=== PATIENT | female | born 1990 | race American Indian/Alaskan Native ===

== ENCOUNTER 2017-04-21 20:50 | Emergency (ER) | payer SELFPAY ==
[2017-04-21 21:05] VITALS: BP 107/69
[2017-04-21] MEDS ORDERED: COMPAZINE IV ONE (21:36)
[2017-04-21] MEDS ORDERED: NACL 0.9% 1000 ML 1,000 ML IV ONE (21:36)
[2017-04-21] MEDS ORDERED: BENADRYL IV ONE (21:36)
--- NOTE | 2017-04-21 21:42 | Emergency Department Report ---
ED Headache HPI - General Chief Complaint: Headache Stated Complaint: CHEST PAIN/MIGRAINE Source: patient - History of Present Illness Initial Comments: Patient complaining of headache 2 weeks. Denies photophobia, nausea vomiting, paresthesia, trauma or neck pain. Patient denies having any chest pain. States she has not had any chest pain in the past. Patient unsure of why she said she had chest pain when asked in triage. Timing/Duration: other (2 weeks of headache) Quality: severe Head Injury Location: other (retro-orbital) Associated Symptoms: denies: confusion, fatigue, facial pain, fever/chills, flushing, loss of consciousness, nausea/vomiting, nasal congestion, nasal drainage, numbness in legs/feet, seizures, sinus infection, stiff neck, vision changes, weakness Allergies/Adverse Reactions: Allergies prednisone Allergy (Verified 04/21/17 20:58) Hives Home Medications: Ambulatory Orders Butalb/Acetamin/Caff 50-325-40 [Fioricet] 1 each PO Q4H PRN #15 tablet 04/21/17 Prochlorperazine [Compazine] 10 mg PO ONCE #15 tablet 04/21/17 ED Review of Systems ROS: Stated complaint: CHEST PAIN/MIGRAINE Other details as noted in HPI Constitutional: no symptoms reported. denies: see HPI, chills Eyes: as per HPI ENT: as per HPI. denies: ear pain, throat pain, dental pain, hearing loss, epistaxis, congestion Respiratory: see HPI. denies: cough, orthopnea, shortness of breath, SOB with exertion, SOB at rest Cardiovascular: denies: chest pain, palpitations, dyspnea on exertion, orthopnea , edema, syncope, paroxysmal nocturnal dyspnea Gastrointestinal: denies: abdominal pain, nausea, vomiting, diarrhea Genitourinary: denies: urgency, dysuria, frequency, hematuria, discharge, abnormal menses, dyspareunia Musculoskeletal: denies: back pain, joint swelling, arthralgia, myalgia Skin: denies: rash, lesions, pruritus Neurological: headache. denies: weakness, numbness, paresthesias, confusion, abnormal gait, vertigo Psychiatric: denies: anxiety, depression, auditory hallucinations, visual hallucinations, homicidal thoughts, suicidal thoughts ED Past Medical Hx - Past Medical History Previous Medical History?: No - Surgical History Past Surgical History?: No - Social History Smoking Status: Former Smoker Substance Use Type: Alcohol, Marijuana - Medications Home Medications: Home Medications Medication Instructions Recorded Confirmed Last Taken Type Butalb/Acetamin/Caff 50-325-40 1 each PO Q4H PRN #15 tablet 04/21/17 Unknown Rx [Fioricet] Prochlorperazine [Compazine] 10 mg PO ONCE #15 tablet 04/21/17 Unknown Rx ED Physical Exam - General Limitations: No Limitations General appearance: alert, in no apparent distress - Head Head exam: Present: atraumatic, normocephalic - Eye Eye exam: Present: normal appearance, PERRL, EOMI. Absent: scleral icterus, conjunctival injection, nystagmus, periorbital swelling, periorbital tenderness Pupils: Present: normal accommodation. Absent: irregular, unequal, miosis, mydriatic - ENT ENT exam: Present: normal exam, normal orophraynx, mucous membranes moist, TM's normal bilaterally, normal external ear exam - Neck Neck exam: Present: normal inspection, full ROM. Absent: tenderness, meningismus, lymphadenopathy - Respiratory Respiratory exam: Absent: respiratory distress - Cardiovascular Cardiovascular Exam: Present: regular rate - GI/Abdominal GI/Abdominal exam: Present: soft. Absent: distended, tenderness - Extremities Exam Extremities exam: Present: normal inspection, full ROM, normal capillary refill. Absent: pedal edema - Back Exam Back exam: Present: normal inspection. Absent: CVA tenderness (R), CVA tenderness (L) - Neurological Exam Neurological exam: Present: alert, oriented X3, CN II-XII intact, normal gait. Absent: altered, abnormal gait - Psychiatric Psychiatric exam: Present: normal affect, normal mood. Absent: depressed, agitated, anxious, flat affect, manic, homicidal ideation, suicidal ideation - Skin Skin exam: Present: warm, dry, intact, normal color, rash ED Course Vital Signs 04/21/17 20:58 Temperature 98.7 F Pulse Rate 85 Respiratory 18 Rate Blood Pressure 107/69 O2 Sat by Pulse 97 Oximetry - Reevaluation(s) Reevaluation #1: 04/21/17 22:17 After several attempts at IV were unsuccessful patient refusing any further assessment/diagnostics, patient requesting prescriptions and to be discharged and is willing to sign out AMA. Reevaluation #2: 04/21/17 22:54 Just talk to patient as she was exiting ED with boyfriend, patient awake alert and oriented, with normal gait, talking on the phone. No deficits noted. Critical care attestation.: If time is entered above; I have spent that time in minutes in the direct care of this critically ill patient, excluding procedure time. ED Disposition Clinical Impression: Headache Disposition: DC-07 LEFT AGAINST MED ADVICE Is pt being admited?: No Condition: Stable Instructions: Acute Headache (ED) Prescriptions: Butalb/Acetamin/Caff 50-325-40 [Fioricet] 1 each PO Q4H PRN #15 tablet PRN Reason: Headache Prochlorperazine [Compazine] 10 mg PO ONCE #15 tablet Referrals: PRIMARY CARE, [Primary Care Provider] - 3-5 Days BEVERLY MENDOSA MD [Referring] - 3-5 Days
== END 2017-04-21 21:36 | disposition left against medical advice (07) ==
LOC: ED 20:50
DX: R51 Headache (principal); F12.90 Cannabis use, unspecified, uncomplicated; Z87.891 Personal history of nicotine dependence; Z88.8 Allergy status to other drugs, medicaments and biological substances
CPT/HCPCS: 99282; J0780; J1200; J7030